=== PATIENT | female | born 1985 | race Caucasian/White ===

== ENCOUNTER 2020-01-27 22:34 | Emergency (ER) | payer MEDICAID, SELFPAY ==
[2020-01-27 22:35] VITALS: BP 139/81; PULSE 98; RESP 18; TEMP 36.3; O2SAT 100; BMI 26.8
[2020-01-27 22:37] VITALS: BP 139/81; PULSE 98; RESP 18; TEMP 36.3; O2SAT 100
[2020-01-27 23:37] VITALS: BP 139/81; PULSE 98; RESP 18; TEMP 36.3; O2SAT 100
--- NOTE | 2020-01-28 00:03 | ED.VIS.GEN ---
History of Present Illness Chief Complaint: Flank Pain Informant: Patient Onset: Yesterday Context: Gradual Onset Timing: Continuous Narrative: Patient is a 34 year old female presenting from home for flank pain, vomiting and diarrhea. Patient has had 6 episodes of vomiting and 7 episodes of diarrhea today. Also had associated crampy abdominal pain which seems to be fairly with her vomiting. Patient states in addition to that she has had bilateral flank pain rating to her back. She denies any fever but has had chills. She denies any dysuria or hematuria. She denies any vaginal symptoms but notes she has had a hysterectomy. Patient is taken Tylenol with no significant relief of her symptoms. She denies any chest pain or difficulty breathing. She denies any headache or rash. She denies any other complaints at this time. She does have a history of gastric sleeve surgery as well as hysterectomy, appendectomy and cholecystectomy. Past Medical History - Allergies and Home Meds Allergies/Adverse Reactions: Allergies No Known Allergies Allergy (Verified 01/27/20 22:37) Primary Care Physician: Care Physician,No Primary [Primary Care Provider] - Past Medical History: None Surgical History: appendectomy, cholecystectomy, gastric bypass, hysterectomy Smoking Status: Never smoker Review of Systems General: Reports: Chills, Malaise. Denies: Fever, Sweats Eyes: Denies: Visual changes - bilaterally, Diplopia ENT: Denies: Rhinorrhea, Sore throat Cardiovascular: Denies: Chest pain, Palpitations Respiratory: Denies: Dyspnea, Cough, Dyspnea on exertion Gastrointestinal: Reports: Abdominal pain, Nausea, Vomiting, Diarrhea. Denies: Constipation, Melena, Hematochezia Genitourinary: Denies: Dysuria, Hematuria, Frequency Musculoskeletal: Reports: Back pain. Denies: Extremity Pain Skin: Denies: Rash, Wounds Neurological: Denies: Headache, Weakness, Numbness Physical Exam Vital Signs/Narrative: Vital Signs Temp Pulse Resp BP Pulse Ox 01/27/20 23:37 97.3 F L 98 18 139/81 H 100 01/27/20 22:37 97.3 F L 98 18 139/81 H 100 01/27/20 22:35 97.3 F L 98 18 139/81 H 100 Inital Vital Signs reviewed: Yes General: Well nourished, Well developed, No Acute Distress Head: Normocephalic, Atraumatic Eyes: Perrl, EOMI ENT: Moist mucous membranes, No rhinorrhea Neck: Supple, Nontender Cardiovascular: Regular rate, Regular rhythm, No murmurs Respiratory: No distress, CTA bilaterally, Chest nontender Abdomen: Soft, Nondistended, Normal bowel sounds, Tender - diffuse. Negative for: Guarding, Rebound tenderness Back: Nontender, Normal Inspection, CVA tenderness, - - bilateral lumbar paraspinal tenderness . Negative for: Spinal tenderness Extremities: Nontender, No edema Skin: Normal color, No rash Neurological: Alert, Oriented x3, Cranial nerves II-XII grossly intact, Normal Strength, Normal Sensation Psychological: Normal affect, Normal Mood Diagnostic/Tx/Re-eval Clinical Impression(s) from Imaging Studies Abdomen/Pelvis CT 01/28/20 23:45 IMPRESSION: Status post cholecystectomy with postoperative changes at the level of the stomach. Nonobstructive intrarenal stones. Possible nonspecific enteritis. Status post hysterectomy. Diffuse osteopenia. Electronically Signed: Argentina Pierce MD at 2:13 EST , Service support , Laboratory Data 01/28/20 01/28/20 01/28/20 00:34 00:55 00:55 WBC 5.4 RBC 4.21 Hgb 12.7 Hct 35.6 L MCV 84.6 MCH 30.2 MCHC 35.7 RDW Std Deviation 36.7 RDW Coeff of Vivian 12.1 Plt Count 191 MPV 9.8 Immature Gran % (Auto) 0.000 Neut % (Auto) 51.6 Lymph % (Auto) 41.3 H [place] % (Auto) 5.6 Eos % (Auto) 1.1 Baso % (Auto) 0.4 Absolute Neuts (auto) 2.8 Absolute Lymphs (auto) 2.23 Nucleated RBC % 0 Sodium 143 Potassium 3.5 Chloride 115 H Carbon Dioxide 23.0 Anion Gap 5 BUN 16 Creatinine 0.74 Estim Creat Clear Calc 113.65 Est GFR (MDRD) Af Amer 113 Est GFR (MDRD) Non-Af 93 BUN/Creatinine Ratio 21.5 H Glucose 83 Calcium 8.8 Total Bilirubin 0.50 AST 18 ALT 47 Alkaline Phosphatase 109 Total Protein 6.6 Albumin 3.6 Globulin 3.0 Albumin/Globulin Ratio 1.2 Lipase 147 Urine Color Yellow Urine Clarity Clear Urine pH 7.0 Ur Specific [place] 1.010 Urine Protein Negative Urine Glucose (UA) Normal Urine Ketones Negative Urine Occult Blood Negative Urine Nitrite Negative Urine Bilirubin Negative Urine Urobilinogen Normal Ur Leukocyte Esterase Negative Urine RBC 0 SEEN Urine WBC 0 SEEN Ur Squamous Epith Cells 0-5 SEEN Amorphous Sediment 1+ Urine Bacteria 0 SEEN Urine Mucus 0 SEEN - Medical Decision Making Patient is evaluated for bilateral flank and back pain as well as vomiting diarrhea. Her symptoms are going on for the past 2 days. She does have associated abdominal pain. Patient appears nontoxic in no acute distress. Her vital signs are normal. Lab work is grossly unremarkable. Urinalysis is not consistent with kidney stone or infection. CT the abdomen fell this is performed with and without contrast to look for kidney stones as well as intra-abdominal infectious pathology such as diverticulitis. This is all grossly negative. She does have findings consistent with enteritis. Likely this is more of a stomach flu that is causing the vomiting diarrhea. Patient does go on to state that she does have problems with back pain and takes Zanaflex at home for this. She will be discharged with symptomatic treatment of Zofran. In the ER patient is given morphine, Zofran and fluids. She is then given IV Toradol. Patient is not have significant improvement of her back pain but does appear well on my reevaluation. She is counseled that at this time she does not appear to have any obvious pathology to explain her pain and therefore I do not feel comfortable writing her narcotic for pain control. Patient does verbalize understanding of this. Patient is counseled on signs and symptoms requiring return to the emergency room. Patient verbalizes agreement and understand this plan. Patient discharged home in stable and improved condition. ED Disposition - Plan for ED Patient: Disposition: Home or Assisted Living Diagnosis: Enteritis, Back pain, Vomiting and diarrhea Instructions: FLANK PAIN, Uncertain Cause, VOMITING AND DIARRHEA, Nonspecific (Adult) Prescriptions: Ondansetron [Zofran Odt] 4 mg PO Q8H PRN PRN #10 tab PRN Reason: Nausea Prescription Printed Referrals: Care Physician,No Primary [Primary Care Provider] - Additional Instructions: Your CT did not show any obstructing kidney stones or acute surgical emergencies. At this time I think you are safe to go home. Likely this is a stomach flu that is causing her symptoms. Please return the emergency room if your symptoms worsen or you develop fever or cannot eat or drink. Try to drink plenty of fluids and slowly advance your diet as you feel better. Follow-up with your primary care doctor for further evaluation. Use heating pad for your back to help with the pain.
[2020-01-28 00:35] VITALS: BP 131/89; PULSE 100; RESP 18; O2SAT 100
[2020-01-28 00:43] LABS: Bacteria 0 SEEN /hpf (None Seen); Mucous, Urine 0 SEEN /hpf (<or=2+); Red Blood Cells-Urine 0 SEEN /hpf (0-5); White Blood Cells 0 SEEN /hpf (0-5)
[2020-01-28 00:44] LABS: Color, Urine Yellow (Yellow); Glucose, Dipstick Normal (Normal); Ketone-Dipstick Negative (Negative); Leukocyte Esterase-Dipstick Negative /ul (Negative); Nitrite-Dipstick Negative (Negative); Occult Blood-Urine Negative /ul (Negative); Protein-Dipstick Negative (Negative); Urine Bilirubin Dipstick Negative (Negative); Urine Clarity Clear (Clear); Urine Urobilinogen Normal (Normal)
[2020-01-28 00:50] LABS: Amorphous Sediment 1+; Squamous Epithelial Cells - UA 0-5 SEEN /hpf (5-10)
[2020-01-28] MEDS: 0.9% Normal Saline 1,000 ML 1000 ML IV (00:54)
[2020-01-28] MEDS: Ondansetron 4 MG/2 ML Vial IV (00:55)
[2020-01-28] MEDS: Morphine 4 MG/ML Syringe IV (00:55)
[2020-01-28] MEDS: Famotidine 200 MG/20 ML MDV 20 MG in 0.9% Normal Saline (Pres. free 8 ML 300 ML IV (00:55)
[2020-01-28 01:02] LABS: Absolute Lymphocyte Count 2.23 X10^3/uL (0.83-4.51); Absolute Neutrophil Count 2.8 X10^3/uL (2.0-7.7); Basophil# 0.02 X10^3/uL; Basophil% 0.4 % (0-1); Eosinophil# 0.06 X10^3/uL; Eosinophils% 1.1 % (0-5); Hematocrit 35.6 % (37-47); Hemoglobin 12.7 g/dL (12.0-15.0); Lymphocyte # 2.23 X10^3/ul (4.0); Lymphocyte % 41.3 % (19-41); Mean Corp Hgb Conc 35.7 g/dL (32-36); Mean Corpuscular Hgb 30.2 pg (27.0-32.0); Mean Corpuscular Volume 84.6 fL (81-99); Mean Platelet Vol. 9.8 fl (6.2-12.0); Monocyte% 5.6 % (0-10); NRBC Flagged by Analyzer 0 % (0-5); Neutrophil # 2.79 X10^3/uL (2.7-7.7); Neutrophil % 51.6 % (47-70); Platelet Count 191 K/mm3 (150-450); RBC Distribution Width CV 12.1 % (11.6-14.6); RBC Distribution Width SD 36.7 fl (35.1-43.9); Red Blood Count 4.21 M/mm3 (4.2-5.4); White Blood Count 5.4 K/mm3 (4.4-11.0)
[2020-01-28 01:22] LABS: ALB/GLOB Ratio 1.2 RATIO (0.9-2.4); AST(SGOT) 18 U/L (15-37); Alanine Aminotransfer ALT/SGPT 47 U/L (13-56); Albumin, Serum 3.6 g/dL (3.2-5.0); Alkaline Phosphatase 109 U/L (45-117); Anion Gap 5 (5-15); BUN 16 mg/dL (7-18); BUN/Creat Ratio 21.5 RATIO (10-20); Calcium,Total 8.8 mg/dL (8.5-10.1); Chloride 115 mmol/L (98-107); Creatinine, Serum 0.74 mg/dL (0.55-1.02); EST Glomerular Filtration Rate 93 mL/min (>60); Est Glom Filt Rate - Afr Amer 113 mL/min (>60); Estimated Creatinine Clearance 113.65 ml/min; Glucose 83 mg/dL (74-106); Lipase 147 U/L (73-393); Potassium 3.5 mmol/L (3.5-5.1); Protein, Total 6.6 g/dL (6.4-8.2); Sodium Level 143 mmol/L (136-145)
[2020-01-28] MEDS: Ketorolac 15 MG/ML Vial IV (02:51)
[2020-01-28 03:20] VITALS: BP 117/85; PULSE 64; RESP 16
--- NOTE | 2020-01-28 23:45 | CT_ITS ---
STUDY: CT ABDOMEN AND PELVIS WITH AND WITHOUT CONTRAST REASON FOR EXAM: Female, 34 years old. RIGHT SIDE BACK PAIN AND ABD PAIN WITH EMESIS AND DIARRHEA X 2 DAYS, HX APPY, GB, GASTRIC BYPASS, HYSTERECTOMY RADIATION DOSAGE (If Supplied By Facility): CTDIvol = ( 16.86 ) mGy, DLP = ( 1986.89 ) mGycm TECHNIQUE: Transaxial images were obtained from the dome of the diaphragm to the symphysis pubis without oral contrast. 100ML ISOVUE 370 was administered. Sagittal and coronal images were reconstructed. Individualized dose optimization techniques were used for this CT. COMPARISON: None. FINDINGS: Minimal bilateral pleural effusions. The visualized portions of the heart are within normal limits. Right upper quadrant cholecystectomy clips. There are surgical clips in the gallbladder fossa consistent with a prior cholecystectomy. Normal spleen. Normal pancreas. Normal bilateral adrenal glands. 4.4 mm stone within the lower pole of the right kidney and 2.5 mm stone within the upper pole of the right kidney. Multiple left upper renal pole stones, largest averaging 4 mm. The smallest stone within the lower pole measuring 2 mm and within the middle pole measuring 1 mm. Otherwise normal left kidney. Postoperative changes with sutures at the level of the stomach and suggestive of partial resection. Mild distention of the distal small bowel loops with fluid within the lumen and air-fluid levels. There is fluid within the ascending colon and cecum. This combination findings may indicate nonspecific enteritis. There are surgical clips in the region of the appendix consistent with a prior appendectomy. Normal abdominal aorta. Normal inferior vena cava. Normal retroperitoneum. Normal urinary bladder. There is absence of the uterus consistent with a prior hysterectomy. Normal abdominal wall. Suggestion of diffuse osteopenia. CT/CT Abd/Pelvis W/WO Contrast IMPRESSION: Status post cholecystectomy with postoperative changes at the level of the stomach. Nonobstructive intrarenal stones. Possible nonspecific enteritis. Status post hysterectomy. Diffuse osteopenia. Electronically Signed: Argentina Pierce MD at 2:13 EST , Service support ,
== END 2020-01-28 03:21 | disposition home or self-care (01) ==
PROVIDERS: Emergency Provider Emergency Medicine
DX: K52.9 Noninfective gastroenteritis and colitis, unspecified (principal); N20.0 Calculus of kidney; M54.9 Dorsalgia, unspecified; M85.80 Other specified disorders of bone density and structure, unspecified site; Z98.84 Bariatric surgery status; Z90.710 Acquired absence of both cervix and uterus; Z90.49 Acquired absence of other specified parts of digestive tract
CPT/HCPCS: 74178; 80053; 81001; 83690; 85025; 96361; 96374; 96375; 99285; J7030; Q9967; A4216; J2405; J3490